=== PATIENT | female | born 1945 | race Caucasian/White ===

== ENCOUNTER 2018-07-03 16:33 | Emergency (ER) | payer OTHER, BC ==
[2018-07-03 17:07] VITALS: BP 133/75; PULSE 85; TEMP 98.7; BMI 44.4
[2018-07-03 19:06] LABS: BASO % 0.2 % (0-2.0); EOS % 1.1 % (0-4.5); HEMATOCRIT 42.8 % (32.4-45.2); HEMOGLOBIN 14.4 GM/dL (10.7-15.3); LYMPH % 18.7 % (8-40); MCH 29.8 pg (25.7-33.7); MCHC 33.6 g/dl (32.0-36.0); MEAN CELL VOLUME 88.8 fl (80-96); MEAN PLT VOLUME 8.3 fl (7.5-11.1); MONO % 5.5 % (3.8-10.2); NEUT % 74.5 % (42.8-82.8); PLATELET COUNT 273 K/MM3 (134-434); RBC 4.82 M/mm3 (3.60-5.2); RDW 14.1 % (11.6-15.6); WHITE BLOOD COUNT 9.9 K/mm3 (4.0-10.0)
--- NOTE | 2018-07-03 19:06 | PDOC ---
History of Present Illness - General Chief Complaint: Chest Pain Stated Complaint: WEAKNESS Time Seen by Provider: 07/03/18 16:56 - History of Present Illness Initial Comments: 07/03/18 19:01 "The patient is a 72 year old female, with a significant PMH of atrial fibrillation on Pradaxa, HTN, HLD, who presents to the emergency department via EMS with epigastric abdominal pain and chest pain beginning around 3 pm today. The patient states she was out having lunch this afternoon at a restaurant when she developed severe epigastric pain radiating to her chest. She states it was associated with jaw pain and diaphoresis. Pt notes that she's had GERD in the past but this was more severe. The entire episode lasted about an hour before resolving spontaneously. The patient states she has been having the intermittent epigastric pain for the past 3 weeks. However, she states today was the worst its been which prompted the ED visit. The patient also endorses feeling lightheaded during the episode but denies LOC. Pt denies shortness of breath, leg swelling, calf tenderness or dizziness. The patient reports increased stressors since her 3 weeks ago. The patient states her father had a IN at 62 years old. The patient currently denies chest pain, shortness of breath, headache and dizziness. Denies fever, chills, nausea, vomit, diarrhea and constipation. Denies dysuria, frequency, urgency and hematuria. Allergies: NKA Surgical History: Right hip replacement, cataract sx Social History: None reported " Past History - Past Medical History Allergies/Adverse Reactions: Allergies Allergy/AdvReac Type Severity Reaction Status Date / Time No Known Allergies Allergy Verified 07/03/18 17:01 Home Medications: Ambulatory Orders Dabigatran Etexilate Mesylate [Pradaxa -] 150 mg PO BID 07/03/18 Escitalopram Oxalate [Lexapro -] 10 mg PO DAILY 07/03/18 Metoprolol Tartrate 12.5 mg PO DAILY 07/03/18 Simvastatin 10 mg PO DAILY 07/03/18 Cardiac Disorders: Yes (afib) COPD: No HTN: Yes Hypercholesterolemia: Yes - Suicide/Smoking/Psychosocial Hx Smoking History: Never smoked Have you smoked in the past 12 months: No Information on smoking cessation initiated: No Hx Alcohol Use: No Drug/Substance Use Hx: No Review of Systems - Review of Systems Comments:: 07/03/18 19:05 "GENERAL/CONSTITUTIONAL: +Lightheaded. +Diaphoretic. No fever or chills. No weakness. HEAD, EYES, EARS, NOSE AND THROAT: No change in vision. No ear pain or discharge. No sore throat. CARDIOVASCULAR: No chest pain or shortness of breath. RESPIRATORY: No cough, wheezing, or hemoptysis. GASTROINTESTINAL: +Epigastric abdominal pain. No nausea, vomiting, diarrhea or constipation. GENITOURINARY: No dysuria, frequency, or change in urination. MUSCULOSKELETAL: No joint or muscle swelling or pain. No neck or back pain. SKIN: No rash NEUROLOGIC: No headache, vertigo, loss of consciousness, or change in strength/ sensation. ENDOCRINE: No increased thirst. No abnormal weight change. HEMATOLOGIC/LYMPHATIC: No anemia, easy bleeding, or history of blood clots. ALLERGIC/IMMUNOLOGIC: No hives or skin allergy. " *Physical Exam - Vital Signs Last Vital Signs Temp Pulse Resp BP Pulse Ox 98.7 F 85 18 133/75 94 L 07/03/18 17:01 07/03/18 17:01 07/03/18 17:01 07/03/18 17:01 07/03/18 17:01 - Physical Exam Comments: 07/03/18 19:05 "GENERAL: Awake, alert, and fully oriented, in no acute distress. HEAD: No signs of trauma EYES: PERRLA, EOMI, sclera anicteric, conjunctiva clear ENT: Auricles normal inspection, hearing grossly normal, nares patent, oropharynx clear without exudates. Moist mucosa NECK: Nontender, no stepoffs, Normal ROM, supple, no lymphadenopathy, JVD, or masses LUNGS: Breath sounds equal, clear to auscultation bilaterally. No wheezes, and no crackles HEART: Regular rate and rhythm, normal S1 and S2, no murmurs, rubs or gallops ABDOMEN: + mild epigastric TTP, normoactive bowel sounds. No guarding, no rebound. No masses EXTREMITIES: Normal range of motion, no edema. No clubbing or cyanosis. No cords, erythema, or tenderness NEUROLOGICAL: Cranial nerves II through XII intact. 5/5 strength and sensation in all extremities, Normal speech, normal gait, normal cerebellar function SKIN: Warm, Dry, normal turgor, no rashes or lesions noted." Heart Score/ECG Review - History History: Slightly suspicious - Electrocardiogram EKG: Normal - Age Age: >/= 65 - Risk Factors Risk Factors Heart Score: Yes Hx Hypercholesterolemia, Yes Hx Hypertension, Yes Positive family hx of cardiac disease Based on the list above the patient has:: >/=3 risk factors or Hx atherosclerotic disease - Troponin Troponin: </= normal limit - Score Heart Score - Total: 4 - ECG Impressions Comment:: 07/03/18 19:06 Afib, no KRYSTAL/STDs, no TWIs, axis wnl, intervals wnl, rate 94 ED Treatment Course - LABORATORY CBC & Chemistry Diagram: 07/03/18 18:27 07/03/18 18:27 - RADIOLOGY Radiology Studies Ordered: Category Date Time Status CHEST X-RAY PORTABLE* [RAD] Stat Radiology 07/03/18 19:01 Ordered Medical Decision Making - Medical Decision Making 07/03/18 19:09 72 F with epigastric + chest pain. Possible GERD. HEART score 4. Will r/o ACS with serial trops. Likely admit to tele. - Labs, lipase, trop - GI cocktail - CXR Pt signed out to oncoming attending at 7pm, pending labs, XR, and admission to hospital.
[2018-07-03 19:19] LABS: INR 1.03 (0.83-1.09); PROTHROMBIN TIME (PATIENT) 11.6 SEC (9.7-13.0)
[2018-07-03 19:22] LABS: ACTIVATED PTT 34.2 SECONDS (25.2-36.5)
[2018-07-03 19:35] LABS: ALBUMIN 3.7 g/dl (3.4-5.0); ANION GAP 9 (8-16); BLOOD UREA NITROGEN 17 mg/dL (7-18); CALCIUM 9.2 mg/dL (8.5-10.1); CHLORIDE 105 mmol/L (98-107); CO2 27 mmol/L (21-32); GLUCOSE,RANDOM 93 mg/dL (74-106); POTASSIUM 4.4 mmol/L (3.5-5.1); SODIUM 141 mmol/L (136-145)
[2018-07-03 19:39] LABS: ALK PHOS 60 U/L (45-117); BILIRUBIN,TOTAL 0.6 mg/dL (0.2-1.0); CREATININE 0.6 mg/dL (0.55-1.02); SGOT/AST 16 U/L (15-37); SGPT/ALT 25 U/L (12-78); TOT PROT 6.9 g/dl (6.4-8.2)
--- NOTE | 2018-07-03 21:30 | PDOC ---
*Physical Exam - Vital Signs Last Vital Signs Temp Pulse Resp BP Pulse Ox 98.7 F 85 18 133/75 94 L 07/03/18 17:01 07/03/18 17:01 07/03/18 17:01 07/03/18 17:01 07/03/18 17:01 ED Treatment Course - LABORATORY CBC & Chemistry Diagram: 07/03/18 18:27 07/03/18 18:27 - ADDITIONAL ORDERS Additional order review: Laboratory Results 07/03/18 07/03/18 07/03/18 18:30 18:27 18:27 PT with INR INR PTT (Actin FS) Sodium Potassium Chloride Carbon Dioxide Anion Gap BUN Creatinine Creat Clearance w eGFR Random Glucose Lactic Acid 1.1 Calcium Total Bilirubin AST ALT Alkaline Phosphatase Creatine Kinase 50 Troponin I < 0.02 Total Protein Albumin Lipase 144 07/03/18 07/03/18 18:27 18:27 PT with INR 11.60 INR 1.03 PTT (Actin FS) 34.2 Sodium 141 Potassium 4.4 Chloride 105 Carbon Dioxide 27 Anion Gap 9 BUN 17 Creatinine 0.6 Creat Clearance w eGFR > 60 Random Glucose 93 Lactic Acid Calcium 9.2 Total Bilirubin 0.6 AST 16 ALT 25 Alkaline Phosphatase 60 Creatine Kinase Troponin I Total Protein 6.9 Albumin 3.7 Lipase 07/03/18 18:27 RBC 4.82 MCV 88.8 MCHC 33.6 RDW 14.1 MPV 8.3 Neutrophils % 74.5 Lymphocytes % 18.7 Monocytes % 5.5 Eosinophils % 1.1 Basophils % 0.2 Medical Decision Making - Medical Decision Making 07/03/18 21:25 Pt having no pain or SOB. Pt denies any nausea or vomiting or diaphoresis. CK is 50 troponin negative. 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 *DC/Admit/Observation/Transfer Diagnosis at time of Disposition: Chest pain Qualifiers: Chest pain type: unspecified Qualified Code(s): R07.9 - Chest pain, unspecified - Discharge Dispostion Disposition: HOME Condition at time of disposition: Stable Decision to Admit order: No - Referrals Referrals: Mark Laurent MD [Staff Physician] - Sara Deluna MD [Staff Physician] - - Patient Instructions Printed Discharge Instructions: DI for Chest Pain Additional Instructions: continue all your medications as usual. Follow up with your scheduled appointment. Return if any problems arise. - Post Discharge Activity
--- NOTE | 2018-07-04 10:28 | EKG ---
Test Reason : Blood Pressure : / mmHG Vent. Rate : 094 BPM Atrial Rate : 122 BPM P-R Int : 000 ms QRS Dur : 084 ms QT Int : 388 ms P-R-T Axes : 000 -24 015 degrees QTc Int : 485 ms ATRIAL FIBRILLATION ABNORMAL ECG NO PREVIOUS ECGS AVAILABLE Confirmed by JUDY ANTON MD ([id number]) on 07/04/2018 10:28:34 AM Referred By: Confirmed By:JUDY ANTON MD
== END 2018-07-03 21:45 | disposition home or self-care (01) ==
LOC: JER 16:33
DX: R07.9 Chest pain, unspecified (principal); I48.91 Unspecified atrial fibrillation; I10 Essential (primary) hypertension; E78.5 Hyperlipidemia, unspecified; Z79.01 Long term (current) use of anticoagulants
CPT/HCPCS: 36415; 71046-TC-FY; 80053; 82550; 83605; 83690; 84484; 85025; 85610; 85730; 93005; 93010; 99284-25